=== PATIENT | female | born 1985 ===

== ENCOUNTER 2017-03-29 01:53 | Emergency (ER) | payer SELFPAY ==
[2017-03-29 02:12] VITALS: TEMP 98.4; O2SAT 100; BMI 25.0
--- NOTE | 2017-03-29 02:33 | ED PDOC ---
Arrival/HPI <Walter Gifford - Last Filed: 03/29/17 04:36> - General Historian: Patient - History of Present Illness Time/Duration: Prior to Arrival Symptom Onset: Sudden Context: Home <Cherry Sanchez - Last Filed: 03/29/17 05:48> - General Time Seen by Provider: 03/29/17 02:00 - History of Present Illness Narrative History of Present Illness (Text): 03/29/17 02:27 31 yo female with PMH of gestational diabetes presented to ED with episode of loss of consciousness. Patient states that she was in the kitchen cooking dinner when she felt lightheaded with blurred vision and then lost consciousness. Episode was not witnessed. Patient denies loss of bowel or bladder functions. She states she was confused when waking up, she called her neighbor who recommended coming to ED. She denies hitting her head or any trauma. Patient states that she had headache this morning and took 2 asa which helped. She denies recent illness, fever, chills, chest pain ,sob, urinary symptoms. Patient has history of gestational diabetes but stopped taking medication 1 year ago. PMD: none (Cherry Sanchez) Past Medical History - Provider Review Nursing Documentation Reviewed: Yes - Endocrine/Metabolic Hx Endocrine Disorders: Yes Other/Comment: Gestational diabetes - Psychiatric Hx Substance Use: No - Surgical History Hx Section: Yes <LauraCherry - Last Filed: 03/29/17 05:48> Family/Social History - Physician Review Nursing Documentation Reviewed: Yes Family/Social History: Neoplasm/Cancer (grandmother- brain ca) Smoking Status: Never Smoked Hx Alcohol Use: Yes Frequency of alcohol use: Socially Hx Substance Use: No <LauraCherry - Last Filed: 03/29/17 05:48> Allergies/Home Meds <Walter Gifford - Last Filed: 03/29/17 04:36> <LauraCherry - Last Filed: 03/29/17 05:48> Allergies/Adverse Reactions: Allergies No Known Allergies Allergy (Verified 03/29/17 02:11) Home Medications: Home Meds Medication Instructions Recorded Confirmed No Known Home Med 03/29/17 03/29/17 Review of Systems - Review of Systems Constitutional: Fatigue. absent: Fevers Eyes: Vision Changes ENT: Normal, Rhinorrhea. absent: Sore Throat, Sinus Congestion Respiratory: Normal. absent: SOB, Cough, Wheezing Cardiovascular: Syncope. absent: Chest Pain, Palpitations, Edema Gastrointestinal: Normal. absent: Abdominal Pain, Constipation, Diarrhea, Nausea, Vomiting Genitourinary Female: Normal. absent: Dysuria, Frequency, Hematuria Musculoskeletal: Normal. absent: Arthralgias, Myalgias Skin: Normal. absent: Rash, Pruritis, Laceration Neurological: Headache, Dizziness. absent: Focal Weakness Endocrine: Normal. absent: Diaphoresis, Polyuria, Polydipsia Hemo/Lymphatic: Normal. absent: Easy Bleeding, Easy Bruising Psychiatric: Normal <LauraCherry celeste - Last Filed: 03/29/17 05:48> Physical Exam Vital Signs Reviewed: Yes Temperature: Afebrile Blood Pressure: Normal Pulse: Regular Respiratory Rate: Normal Appearance: Positive for: Well-Appearing, Non-Toxic, Comfortable Pain Distress: None Mental Status: Positive for: Alert and Oriented X 3 <Walter Gifford - Last Filed: 03/29/17 04:36> - Systems Exam Head: Present: Atraumatic, Normocephalic. No: Tenderness, Contusion Pupils: Present: PERRL. No: Sluggish, Non-Reactive, Pinpoint Extroacular Muscles: Present: EOMI. No: Gaze Palsy, Entrapment Conjunctiva: Present: Normal Mouth: Present: Moist Mucous Membranes Pharnyx: Present: Normal. No: ERYTHEMA, EXUDATE, TONSILS ENLARGED Neck: Present: Normal Range of Motion Respiratory/Chest: Present: Clear to Auscultation, Good Air Exchange. No: Respiratory Distress, Accessory Muscle Use, Wheezes, Rhonchi, Tachypneic Cardiovascular: Present: Regular Rate and Rhythm, Normal S1, S2. No: Murmurs, Tachycardic, Bradycardic Abdomen: Present: Normal Bowel Sounds. No: Tenderness, Distention, Peritoneal Signs Back: Present: Normal Inspection Upper Extremity: Present: Normal Inspection, NORMAL PULSES. No: Cyanosis, Edema , Swelling Lower Extremity: Present: Normal Inspection. No: Edema, CALF TENDERNESS Neurological: Present: GCS=15, CN II-XII Intact, Speech Normal Skin: Present: Warm, Dry, Normal Color. No: Rashes Psychiatric: Present: Alert, Oriented x 3, Normal Insight, Normal Concentration <Cherry Sanchez - Last Filed: 03/29/17 05:48> Vital Signs Temp Pulse Resp BP Pulse Ox 03/29/17 04:36 69 18 108/49 L 100 03/29/17 02:11 98.4 F 80 16 136/76 100 Medical Decision Making <Walter Gifford - Last Filed: 03/29/17 04:36> <Cherry Sanchez - Last Filed: 03/29/17 05:48> ED Course and Treatment: Patient Seen With Resident: In agreement with resident note which contains more details about the patient. Patient was seen and evaluated with resident. Came up with plan and treatment together. Patient is a 31 year old female who presents to the emergency department for evaluation following a syncopal episode. Will order Labs, cardiac enzymes, EKG, CT Head, and Urinalysis 03/29/17 03:48 CT head results reviewed: FINDINGS: Brain: No acute findings. No hemorrhage. No significant white matter disease. No edema. Ventricles: No acute findings. No ventriculomegaly. Bones/joints: No acute findings. No acute fracture. Soft tissues: No acute findings. Sinuses: No acute findings. No acute sinusitis. Mastoid air cells: No acute findings. No mastoid effusion. IMPRESSION: No acute findings 03/29/17 04:30 On re-evaluation, patient feels better and is in no acute distress. I have discussed the results and plan with the patient, who expresses understanding. Patient in agreement with plan to be discharged home. Patient is stable for discharge. Patient was instructed to follow up with physician or return if symptoms worsen or new concerning symptoms arise. (Walter Gifford) 03/29/17 02:36 Impression: 31 yo female with no significant PMH presented to ED after loss of consciousness. Differential diagnoses includes but not limited to: - syncope Plan: - CBC, CMP - cardiac iso - EKG - CT head - UA - test 03/29/17 04:25 - CT head showed no acute finding. Labs were review and discussed with patients. Patient is agreeable to go home. She is to follow up with PMD in 1-2 days, return to ED if symptoms worsen. (Cherry Sanchez) - Lab Interpretations Lab Results: 03/29/17 02:35 03/29/17 03:20 Lab Results 03/29/17 03:20: D-Dimer, Quantitative 0.40 03/29/17 03:20: Sodium 137, Potassium 3.6, Chloride 107, Carbon Dioxide 21, Anion Gap 13, BUN 11, Creatinine 0.6, Est GFR ( Amer) > 60, Est GFR (Non- Af Amer) > 60, Random Glucose 100, Calcium 9.0, Total Bilirubin 0.3, AST 18, ALT 25, Alkaline Phosphatase 72, Lactate Dehydrogenase 405, Total Creatine Kinase 90, Troponin I < 0.01, Total Protein 6.8, Albumin 3.9, Globulin 2.9, Albumin/Globulin Ratio 1.3 03/29/17 02:55: Urine Color Yellow, Urine Appearance Sl cloudy, Urine pH 6.0, Ur Specific [place] 1.025, Urine Protein Negative, Urine Glucose (UA) Negative, Urine Ketones Negative, Urine Blood Trace-intact H, Urine Nitrate Negative, Urine Bilirubin Negative, Urine Urobilinogen 0.2, Ur Leukocyte Esterase Negative , Urine RBC 0 - 2, Urine WBC Negative, Ur Epithelial Cells 3 - 4, Urine Bacteria Few 03/29/17 02:35: WBC 8.8, RBC 4.05, Hgb 12.1, Hct 35.2 L, MCV 86.9, MCH 29.9, MCHC 34.4, RDW 13.1, Plt Count 382, MPV 9.6, Gran % 64.3, Lymph % (Auto) 21.9 L , Lanier % (Auto) 10.3 H, Eos % (Auto) 3.2, Baso % (Auto) 0.3, Gran # 5.65, Lymph # 1.9, Lanier # 0.9 H, Eos # 0.3, Baso # 0.03 03/29/17 02:35: PT 10.5, INR 0.97, APTT 26.4 03/29/17 02:13: POC Glucose (mg/dL) 115 H - RAD Interpretation Radiology Orders: 03/29/17 02:25 HEAD W/O CONTRAST [CT] Stat - PA / RN CARDIOVASCULAR / Resident Statement / has reviewed & agrees with the documentation as recorded. / has examined the patient and agrees with the treatment plan. <Walter Gifford - Last Filed: 03/29/17 04:36> <Cherry Sanchez - Last Filed: 03/29/17 05:48> - Scribe Statement Nicolas Lion Provider Scribe Attestation: All medical record entries made by the Olafibtanisha were at my direction and personally dictated by me. I have reviewed the chart and agree that the record accurately reflects my personal performance of the history, physical exam, medical decision making, and the department course for this patient. I have also personally directed, reviewed, and agree with the discharge instructions and disposition. (Walter Gifford) Disposition/Present on Arrival <Walter Gifford - Last Filed: 03/29/17 04:36> - Present on Arrival Any Indicators Present on Arrival: No History of DVT/PE: No History of Uncontrolled Diabetes: No Urinary Catheter: No History of Decub. Ulcer: No History Surgical Site Infection Following: None - Disposition Have Diagnosis and Disposition been Completed?: Yes Disposition Time: 04:30 Patient Plan: Discharge <Cherry Sanchez - Last Filed: 03/29/17 05:48> - Disposition Diagnosis: Syncope Disposition: HOME/ ROUTINE Condition: GOOD Discharge Instructions (ExitCare): Syncope (ED) Additional Instructions: Sussy Hernandez, thank you for letting us take care of you today. Your provider was Dr. Sanchez and Dr. Gifford. You were treated for syncopal episode. The emergency medical care you received today was directed at your acute symptoms. If you were prescribed any medication, please fill it and take as directed. It may take several days for your symptoms to resolve. Return to the Emergency Department if your symptoms worsen, do not improve, or if you have any other problems. Please contact your doctor or call one of the physicians/clinics you have been referred to that are listed on the Patient Visit Information form that is included in your discharge packet. Bring any paperwork you were given at discharge with you along with any medications you are taking to your follow up visit. Our treatment cannot replace ongoing medical care by a primary care provider (PCP) outside of the emergency department. Thank you for allowing the [facility] hospital team to be part of your care today. If you had an X-Ray or CT scan: A Radiologist will review the ED reading if any change in treatment is needed we will contact you. Referrals: Rene Martines, [Staff Provider] - Follow up with primary Forms: WORK NOTE
[2017-03-29 02:43] LABS: ADD MANUAL DIFF? NO
[2017-03-29 03:09] LABS: BASO # 0.03 K/mm3 (0.0-2.0); BASO % 0.3 % (0.0-3.0); EOS # 0.3 (0.0-0.7); EOS % 3.2 % (1.5-5.0); GRAN # 5.65 (1.4-6.5); GRAN % 64.3 % (50.0-68.0); HEMATOCRIT 35.2 % (36.0-48.0); LYMPH # 1.9 (1.2-3.4); LYMPH % 21.9 % (22.0-35.0); MEAN CELL VOLUME 86.9 fL (80.0-105.0); MEAN CORPUSCULAR HEMOGLOBIN 29.9 pg (25.0-35.0); MEAN CORPUSCULAR HGB CONC 34.4 g/dl (31.0-37.0); MEAN PLATELET VOLUME 9.6 fl (7.0-11.0); MONO # 0.9 (0.1-0.6); MONO % 10.3 % (1.0-6.0); PLATELET COUNT 382 10^3/uL (120.0-450.0); RED CELL DISTRIBUTION WIDTH 13.1 % (11.5-14.5); WHITE BLOOD COUNT 8.8 10^3/ul (4.5-11.0)
[2017-03-29 03:20] LABS: INR 0.97 (0.93-1.08); PARTIAL THROMBOPLASTIN TIME 26.4 Seconds (23.7-30.8)
[2017-03-29 03:25] LABS: URINE BILIRUBIN NEGATIVE (NEGATIVE); URINE BLOOD TRACE-INTACT (NEGATIVE); URINE GLUCOSE (UA) NEGATIVE (NEGATIVE); URINE KETONE NEGATIVE (NEGATIVE); URINE LEUKOCYTE ESTERASE NEGATIVE Leu/uL (NEGATIVE); URINE PROTEIN NEGATIVE mg/dL (<30 mg/dL); URINE UROBILINOGEN 0.2 E.U./dL (<1 E.U./dL)
[2017-03-29 03:31] LABS: URINE APPEARANCE SL CLOUDY (CLEAR); URINE COLOR YELLOW (YELLOW)
[2017-03-29 03:50] LABS: ALB/GLOB RATIO 1.3 (1.1-1.8); ALKALINE PHOSPHATASE 72 U/L (38-133); ALT/SGPT 25 U/L (7-56); AST/SGOT 18 U/L (15-39); BILIRUBIN,TOTAL 0.3 mg/dL (0.2-1.3); BLOOD UREA NITROGEN 11 mg/dL (7-21); CARBON DIOXIDE 21 mmol/L (21-33); CHLORIDE 107 mmol/L (98-107); GFR AFRICAN-AMERICAN > 60; GLUCOSE,RANDOM 100 mg/dL (70-110); POTASSIUM 3.6 mmol/L (3.6-5.0); SODIUM 137 mmol/L (132-148); TOTAL PROTEIN 6.8 g/dL (5.8-8.3)
[2017-03-29 04:03] LABS: URINE RBC 0 - 2 /hpf (0-2)
[2017-03-29 04:04] LABS: URINE BACTERIA FEW (NEG); URINE WBC NEGATIVE /hpf (0-6)
[2017-03-29 04:06] LABS: TROPONIN I < 0.01 ng/mL
[2017-03-29 04:37] VITALS: BP 108/49; PULSE 69; RESP 18
--- NOTE | 2017-03-29 07:37 | CT ---
PROCEDURE: CT HEAD WITHOUT CONTRAST. HISTORY: syncope COMPARISON: None available. TECHNIQUE: Axial computed tomography images were obtained through the head/brain without intravenous contrast. Radiation dose: Total exam DLP = 677 mGy-cm. This CT exam was performed using one or more of the following dose reduction techniques: Automated exposure control, adjustment of the mA and/or kV according to patient size, and/or use of iterative reconstruction technique. FINDINGS: HEMORRHAGE: No intracranial hemorrhage. BRAIN: No mass effect or edema. No atrophy or chronic microvascular ischemic changes. VENTRICLES: Unremarkable. No hydrocephalus. CALVARIUM: Unremarkable. PARANASAL SINUSES: Unremarkable as visualized. No significant inflammatory changes. MASTOID AIR CELLS: Unremarkable as visualized. No inflammatory changes. OTHER FINDINGS: None. IMPRESSION: Normal CT of the Head.
--- NOTE | 2017-03-29 15:30 | CARD ---
APPROVED REPORT EKG Measurement Heart [id number] <Conclusion> Normal sinus rhythm Normal ECG
== END 2017-03-29 04:42 | disposition home or self-care (01) ==
LOC: ED 01:53
DX: R55 Syncope and collapse (principal)

== ENCOUNTER 2017-06-16 01:33 | Emergency (ER) | payer SELFPAY ==
[2017-06-16 01:34] VITALS: BMI 25.0
[2017-06-16 01:46] VITALS: BP 127/76; PULSE 88; RESP 16; TEMP 98.9; O2SAT 100
[2017-06-16] MEDS ORDERED: DiphenhydrAMINE 50 mg/ml Inj IVP STA (02:07)
--- NOTE | 2017-06-16 02:13 | ED PDOC ---
Arrival/HPI - History of Present Illness Time/Duration: 1-3 hours Symptom Onset: Sudden Symptom Course: Unchanged Quality: Other (pulsatile) Severity Level: 5 - General Chief Complaint: Dizziness/Lightheaded Time Seen by Provider: 06/16/17 01:43 - History of Present Illness Narrative History of Present Illness (Text): 06/16/17 02:09 This is a 31 year old female with no significant PMHx complaining of lightheadedness and blurred vision. Patient states that these symptoms have started earlier this morning past midnight. Patient states that the blurred vision has since resolved, but she remains with complaints of lightheadedness, nausea. Patient states that she has a frontal headache 5/10 described as pulsatile. Patient admits to photosensitivity and scintillating scotomas. Patient denies phonosensitivity. Patient denies fever, chills, chest pain, SOB, cough, abdominal pain, vomiting, constipation, diarrhea, dysuria. PMD: Dr. Rajan in [place] (Gaurav Shepherd) Past Medical History - Provider Review Nursing Documentation Reviewed: Yes - Endocrine/Metabolic Hx Endocrine Disorders: Yes Other/Comment: Gestational diabetes - Psychiatric Hx Substance Use: No - Surgical History Hx Section: Yes Family/Social History - Physician Review Nursing Documentation Reviewed: Yes Family/Social History: No Known Family HX Smoking Status: Never Smoked Hx Alcohol Use: Yes Hx Substance Use: No Allergies/Home Meds Allergies/Adverse Reactions: Allergies No Known Allergies Allergy (Verified 03/29/17 02:11) Home Medications: Home Meds Medication Instructions Recorded Confirmed No Known Home Med 03/29/17 06/16/17 Review of Systems - Review of Systems Constitutional: Normal Eyes: Vision Changes (resolved blurred vision), Photophobia ENT: Normal Respiratory: Normal. absent: SOB, Cough Cardiovascular: Normal. absent: Chest Pain Gastrointestinal: Nausea. absent: Abdominal Pain, Constipation, Diarrhea, Vomiting Genitourinary Female: Normal. absent: Dysuria Musculoskeletal: Normal Skin: Normal Neurological: Headache (frontal) Endocrine: Normal Hemo/Lymphatic: Normal Psychiatric: Normal Physical Exam Vital Signs Reviewed: Yes Temperature: Afebrile Blood Pressure: Normal Pulse: Regular Respiratory Rate: Normal Appearance: Positive for: Well-Appearing Pain Distress: None Mental Status: Positive for: Alert and Oriented X 3 - Systems Exam Head: Present: Atraumatic, Normocephalic Pupils: Present: PERRL Extroacular Muscles: Present: EOMI Conjunctiva: Present: Normal Mouth: Present: Moist Mucous Membranes Neck: Present: Normal Range of Motion Respiratory/Chest: Present: Clear to Auscultation, Good Air Exchange. No: Accessory Muscle Use Cardiovascular: Present: Regular Rate and Rhythm, Normal S1, S2 Abdomen: Present: Normal Bowel Sounds. No: Tenderness, Distention Upper Extremity: Present: Normal Inspection, NORMAL PULSES. No: Edema Lower Extremity: Present: Normal Inspection, NORMAL PULSES. No: Edema, CALF TENDERNESS Neurological: Present: GCS=15, CN II-XII Intact Skin: Present: Warm, Dry, Normal Color. No: Rashes Psychiatric: Present: Alert, Oriented x 3 Medical Decision Making ED Course and Treatment: 06/16/17 02:21 CBC, CMP, Coags, Urine , EKG Benadryl 25 mg IV Reglan 10 mg IV Orthostatic vitals taken by resident: Supine: 119/72 Sittin/91 Standin/88 06/16/17 02:33 Patient stated that she had to go home to take care of her child. Patient refused labs and further work-up. Patient signed out AMA understanding the risks. (Gaurav Shepherd) In agreement with resident note, which includes further HPI details. Patient was seen and evaluated with resident, came up with plan and treatment together. Leaving Against Medical Advice (AMA): The patient is choosing to leave against medical advice. I have personally explained to the patient that choosing to do so may result in permanent bodily harm or . I have discussed at great length that without further evaluation and monitoring there may be unforeseen circumstances and/or deterioration causing permanent bodily harm or as a result of their choice. The patient is alert, oriented, and shows the mental capacity to make clear decisions regarding the patients health care at this time. The patient continues to wish to leave against medical advice. In light of the patients decision to leave against medical advice, follow-up has been arranged and the patient is aware of the importance to following up as instructed. The patient has been advised that they should return to the emergency room immediately if they change their mind at any time, or if their condition begins to change or worsen in any way. 06/16/17 06:12 pt seen with resident. headache/blurry vision. refuses any w/.u to take care of child. signs ama (Raswant,Jeff) - Medication Orders Current Medication Orders: Discontinued Medications Diphenhydramine HCl (Benadryl) 25 mg IVP STAT STA Stop: 06/16/17 02:08 Metoclopramide HCl (Reglan) 10 mg IVP STAT STA Stop: 06/16/17 02:08 Disposition/Present on Arrival - Present on Arrival Any Indicators Present on Arrival: No History of DVT/PE: No History of Uncontrolled Diabetes: No Urinary Catheter: No History of Decub. Ulcer: No History Surgical Site Infection Following: None - Disposition Have Diagnosis and Disposition been Completed?: Yes Disposition Time: 05:00 - Disposition Diagnosis: Headache, Blurry vision Disposition: AGAINST MEDICAL ADVICE Condition: UNKNOWN Discharge Instructions (ExitCare): Acute Headache (ED), Blurred Vision (ED), Against Medical Advice (ED) Additional Instructions: follow up with your doctor/clinic. return to er with worsening symptoms or concerns. Referrals: [facility] [Outside] - Follow up with primary [facility] [Outside] - Follow up with primary Forms: [employer] (Estonian)
== END 2017-06-16 03:20 | disposition left against medical advice (07) ==
LOC: ED 01:33
DX: H53.8 Other visual disturbances (principal); R51 Headache